=== PATIENT | female | born 1990 | race Caucasian/White ===

== ENCOUNTER 2017-05-27 10:00 | Emergency (ER) | payer MEDICAID ==
[2017-05-27 10:38] VITALS: BP 142/71
--- NOTE | 2017-05-27 10:51 | UC ---
Psychiatric Complaint HPI - HPI Summary HPI Summary: 26 YEAR OLD FEMALE PRESENTS FOR A REFILL OF HER WELLBUTRIN RX. - History Of Current Complaint Chief Complaint: UCGeneralIllness Stated Complaint: ANXIETY Time Seen by Provider: 05/27/17 10:51 Hx Obtained From: Patient Hx Last Menstrual Period: has nexplanon Onset/Duration: Sudden Onset Timing: Constant Severity Initially: Moderate Severity Currently: Moderate Aggravating Factor(s): Nothing - Allergies/Home Medications Allergies/Adverse Reactions: Allergies Allergy/AdvReac Type Severity Reaction Status Date / Time No Known Allergies Allergy Verified 05/27/17 10:33 Home Medications: Home Medications NK [No Home Medications Reported] 05/27/17 [History Confirmed 05/27/17] PMH/Surg Hx/FS Hx/Imm Hx Previously Healthy: Yes - Surgical History Surgical History: None - Social History Alcohol Use: None Substance Use Type: None Smoking Status (MU): Never Smoked Tobacco Review of Systems Constitutional: Negative Skin: Negative Eyes: Negative ENT: Negative Respiratory: Negative Cardiovascular: Negative Gastrointestinal: Negative Genitourinary: Negative Motor: Negative Neurovascular: Negative Musculoskeletal: Negative Neurological: Negative Psychological: Anxious All Other Systems Reviewed And Are Negative: Yes Physical Exam Triage Information Reviewed: Yes Vital Signs: Initial Vital Signs Temp 36.6 C 05/27/17 10:33 Pulse 89 05/27/17 10:33 Resp 16 05/27/17 10:33 BP 142/71 05/27/17 10:33 Pulse Ox 99 05/27/17 10:33 Eye Exam: Normal ENT Exam: Normal Dental Exam: Normal Neck exam: Normal Neck: Positive: 1 Respiratory Exam: Normal Cardiovascular Exam: Normal Abdominal Exam: Normal Musculoskeletal Exam: Normal Neurological Exam: Normal Psychological Exam: Normal Skin Exam: Normal Psych Complaint Course/Dx - Differential Dx/Diagnosis Provider Diagnoses: ANXIETY Discharge - Discharge Plan Condition: Stable Disposition: HOME Patient Education Materials: Anxiety (ED) Referrals: No Primary Care Phys,NOPCP [Medical Doctor] -
== END 2017-05-27 11:14 | disposition home or self-care (01) ==
LOC: UCCORT 10:00
DX: F41.9 Anxiety disorder, unspecified (principal)
CPT/HCPCS: 99202; G0463